=== PATIENT | female | born 1985 | race Hispanic/Latino ===

== ENCOUNTER 2021-07-15 02:34 | Emergency (ER) | payer OTHER ==
[~2021-07-15] VITALS: Ht 165.1 cm; Wt 130.6 kg
[2021-07-15] MEDS ORDERED: METFORMIN HCL1000 MG PO (02:52)
[2021-07-15] MEDS ORDERED: PHENTERMINE H37.5 MG PO (02:53)
--- OUTSIDE RECORDS SUMMARY | 2021-07-15 03:20 | XMS ---
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 ELorraine VISIT COUNT (12 MO.) 1 [facility] Koch TOTAL 1 NOTE: Visits indicate total known visits. ED/UCC VISIT TRACKING (12 MO.) 07/15/2021 02:34 [facility] OR TYPE: Emergency COMPLAINT: - CHEST PAIN, HIGH BP INPATIENT VISIT TRACKING (12 MO.) No inpatient visits to display in this time frame [email or web address]
--- NOTE | 2021-07-17 13:42 | EKG ---
[facility] [address] [place], [place] [address] Signed Sinus tachycardia Cannot rule out Inferior infarct , age undetermined Abnormal ECG No previous ECGs available Confirmed by JEANNETTE JOHNSON MD ([id number]) on 07/17/2021 1:42:38 PM Electronically Signed By: JEANNETTE JOHNSON MD 07/17/211341 PATIENT NAME: JAYE AL Electrocardiogram DATE OF : 89 PHYSICIAN: JEANNETTE JOHNSON MD REPORT #: [id number] REPORT IS CONFIDENTIAL AND NOT TO BE RELEASED WITHOUT AUTHORIZATION
== END 2021-07-15 04:35 | disposition home or self-care (01) ==
LOC: ED 02:34 → EDBD 02:34 → ED 04:35
DX: R07.89 Other chest pain (principal); I10 Essential (primary) hypertension; Z79.84 Long term (current) use of oral hypoglycemic drugs; Z88.8 Allergy status to other drugs, medicaments and biological substances
CPT/HCPCS: 36415; 71045; 80048; 83735; 84484; 85025; 85379; 93005; 93010; 96374; 99285-25; J1885